=== PATIENT | male | born 1995 | race Caucasian/White ===

== ENCOUNTER 2024-11-15 11:29 | Emergency (ER) | payer SELFPAY ==
[2024-11-15 11:31] VITALS: BP 149/79; PULSE 101; RESP 15; TEMP 36.6; O2SAT 98; BMI 25.0
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
[2024-11-15] MEDS: Ibuprofen 600 MG Tablet PO (13:07)
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
[2024-11-15 13:30] VITALS: PULSE 88; RESP 18; O2SAT 98
== END 2024-11-15 14:32 | disposition home or self-care (01) ==
PROVIDERS: Emergency Provider Emergency Medicine; Visit Provider Emergency Medicine
DX: S20.20XA Contusion of thorax, unspecified, initial encounter (principal); R07.89 Other chest pain; Z87.891 Personal history of nicotine dependence; V53.6XXA Passenger in pick-up truck or van injured in collision with car, pick-up truck or van in traffic accident, initial encounter
CPT/HCPCS: 71046; 99282